=== PATIENT | female | born 1970 | race Caucasian/White ===

== ENCOUNTER 2016-10-28 12:48 | Outpatient (CLI) | payer BC, OTHER ==
[~2016-10-28 12:48] MED LIST: ALIVE WOMENS ENERGY PO; ALPRAZOLAM0.5 MG PO; BRINTELLIX PO; BUPROPION HCL150 M3 PO; DIFLUCAN200 MG PO; KRILL OIL300 MG; MACA500 MG; MUSHROOM PO; NORCO1 TA1 PO; PROBIOTIC PO; SPIRULINA500 MG PO; TURKEY TAIL PO; ZYRTEC ALLERGY10 MG PO; [UNRECOGNIZED DRUG - OTHER] PO; [UNRECOGNIZED DRUG - OTHER] PO
--- NOTE | 2016-10-28 16:25 | DIAGNOSTIC IMAGING REPORT ---
PROCEDURE: NM CARDIAC GATED BLOOD POOL INDICATION: BREAST CA TECHNIQUE: 25 mCi of technetium-99m autologously labeled RBCs injected intravenously. Cardiac gated images were obtained in the anterior 45 degree [place] and 70 degree [place] projections with calculation of left ventricular ejection fraction. COMPARISON: 06/22/2016 FINDINGS: Grossly normal left ventricular motion. Left ventricular ejection fraction calculated to be 48%. IMPRESSION: 1. Stable ejection fraction 48%
--- NOTE | 2016-10-28 16:25 | DIAGNOSTIC IMAGING REPORT ---
PROCEDURE: NM CARDIAC GATED BLOOD POOL INDICATION: BREAST CA TECHNIQUE: 25 mCi of technetium-99m autologously labeled RBCs injected intravenously. Cardiac gated images were obtained in the anterior 45 degree [place] and 70 degree [place] projections with calculation of left ventricular ejection fraction. COMPARISON: 06/22/2016 FINDINGS: Grossly normal left ventricular motion. Left ventricular ejection fraction calculated to be 48%. IMPRESSION: 1. Stable ejection fraction 48%
== END 2016-10-28 23:00 ==
LOC: NM SRH 12:48
DX: C50.919 Malignant neoplasm of unspecified site of unspecified female breast (principal)